=== PATIENT | male | born 1995 | race Caucasian/White ===

== ENCOUNTER 2019-04-04 11:23 | Emergency (ER) | payer OTHER ==
[2019-04-04] MEDS ORDERED: Diphtheria,Pertussis(Acell),Tetanus Vaccine 0.5 ML Syringe IM ONE (11:39)
[2019-04-04] MEDS: Lidocaine 1% 10 ML MDV INJECT ONE ×2 (11:39→11:50)
[2019-04-04] MEDS ORDERED: HYDROmorphone 1 MG/ML Syringe IM ONE (11:39)
[2019-04-04] MEDS ORDERED: Sodium Chloride 0.9% 10 ML Syringe FLUSH PRN (11:52)
--- NOTE | 2019-04-04 11:52 | EDM.PDOC ---
ED HPI GENERAL MEDICAL PROBLEM - General Chief Complaint: Lower Extremity Injury/Pain Stated Complaint: NAIL IN L FOOT Time Seen by Provider: 04/04/19 11:34 Source of Information: Reports: Patient, RN Notes Reviewed History Limitations: Reports: No Limitations - History of Present Illness INITIAL COMMENTS - FREE TEXT/NARRATIVE: Patient is a 23-year-old male who presents to the ED for the evaluation of a nail stuck in his left big toe. 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 He states he was moving the air gun at the time, and it went off and ended up watching a nail in his left great toe. He states the nail is roughly 3-1/4 inches long. Patient states that he is in quite a bit of pain, and is having some numbness and tingling to the great toe and the second toe on his left foot. He is unsure of the actual positioning of the nail, but thinks it is straight through. The nail entered his toe in an anterior/posterior fashion. He is unsure of his last tetanus booster. He would rate his pain at a 6 out of 10 today. He is not sure if he is able to wiggle his toes, as his tennis shoe is still stuck on his foot. Left Toe-Hailux Pain Score (Numeric/FACES): 6 - Related Data Allergies Allergy/AdvReac Type Severity Reaction Status Date / Time No Known Allergies Allergy Verified 04/04/19 11:34 Home Meds: Home Meds Doxycycline [Vibramycin] 100 mg PO BID #20 tab 04/04/19 [Rx] Review of Systems - Review of Systems Review Of Systems: See Below Constitutional: Reports: No Symptoms Eyes: Reports: No Symptoms Ears: Reports: No Symptoms Nose: Reports: No Symptoms Mouth/Throat: Reports: No Symptoms Respiratory: Reports: No Symptoms Cardiovascular: Reports: No Symptoms GI/Abdominal: Reports: No Symptoms Genitourinary: Reports: No Symptoms Musculoskeletal: Reports: Foot Pain (Left great toe pain) Neurological: Reports: Numbness (Left great toe and 2nd toe), Tingling (Left great toe and 2nd toe) Psychiatric: Reports: No Symptoms ED EXAM, GENERAL - Physical Exam Exam: See Below Exam Limited By: No Limitations General Appearance: Alert, WD/WN, No Apparent Distress Head: Atraumatic, Normocephalic Neck: Normal Inspection Respiratory/Chest: No Respiratory Distress, Lungs Clear, Normal Breath Sounds, No Accessory Muscle Use, Chest Non-Tender Cardiovascular: Normal Peripheral Pulses, Regular Rate, Rhythm, No Murmur Peripheral Pulses: 3+: Dorsalis Pedis (L), Dorsalis Pedis (R) Extremities: Other (Tennis shoe in place to left foot, there is a nail head sticking out of L great toe in an anterior/posterior fashion. ) Neurological: Alert, Oriented, Normal Cognition, No Motor/Sensory Deficits Psychiatric: Normal Affect, Normal Mood Skin Exam: Warm, Dry, Normal Color, No Rash, Wound/Incision (nail in left great toe) ED TRAUMA EXTREMITY PROCEDURES - Foreign Body Removal Indication:: 3.25 in nail stuck in Left great toe Consent Obtained: Patient Performing Doctor:: Alex Velásquez (Regine Dumont PA-C assisted) Anesthesia Type: Moderate Sedation (concious sedation with 9mg etomidate administered by Dr. Velásquez) Complications:: No Course - Vital Signs Last Recorded V/S: Last Vital Signs Temp 98.2 F 04/04/19 11:34 Pulse 71 04/04/19 11:34 Resp 20 04/04/19 11:34 BP 111/77 04/04/19 11:34 Pulse Ox 99 04/04/19 11:34 - Orders/Labs/Meds Orders: Active Orders 24 hr Category Date Time Status Communication Order [RC] ASDIRECTED Care 04/04/19 13:53 Ordered Peripheral IV Care [RC] . DIRECTED Care 04/04/19 11:52 Ordered Vaccines to be Administered [RC] PER UNIT ROUTINE Care 04/04/19 11:39 Ordered Sodium Chloride 0.9% [Saline Flush] Med 04/04/19 11:52 Ordered 10 ml FLUSH ASDIRECTED PRN Peripheral IV Insertion Adult [OM.PC] Stat Oth 04/04/19 11:52 Ordered Medication Orders Sodium Chloride (Saline Flush) 10 ml FLUSH ASDIRECTED PRN PRN Reason: Keep Vein Open Last Admin: 04/04/19 12:35 Dose: 10 ml Meds: Medications Generic Name Dose Route Start Last Admin Trade Name Freq PRN Reason Stop Dose Admin Sodium Chloride 10 ml 04/04/19 11:52 04/04/19 12:35 Saline Flush FLUSH 10 ml ASDIRECTED PRN Administration Keep Vein Open Discontinued Medications Generic Name Dose Route Start Last Admin Trade Name Margie PRN Reason Stop Dose Admin Diphtheria/Tetanus/Acell Pertussis 0.5 ml 04/04/19 11:39 04/04/19 11:50 Adacel IM 04/04/19 11:40 0.5 ml .ONCE ONE Administration Etomidate 9 mg 04/04/19 12:41 04/04/19 12:50 Amidate IVPUSH 04/04/19 12:42 9 mg ONETIME ONE Administration Hydromorphone HCl 1 mg 04/04/19 11:39 04/04/19 11:50 Dilaudid IM 04/04/19 11:40 1 mg ONETIME ONE Administration Cefazolin Sodium/Dextrose 1 gm 50 mls @ 100 mls/hr 04/04/19 13:02 04/04/19 13 :11 / Premix IV 04/04/19 13:31 100 mls/hr ONETIME ONE Administration Lidocaine HCl 10 ml 04/04/19 11:39 04/04/19 11:50 Xylocaine 1% INJECT 04/04/19 11:40 10 ml ONETIME ONE Administration - Radiology Interpretation Free Text/Narrative:: Official radiology read demonstrates a metallic nail projected within the anterior aspect of the soft tissues of the foot involving the first toe and extending between the first and second toe. No acute bony abnormality was appreciated on this foot study. - Re-Assessments/Exams Free Text/Narrative Re-Assessment/Exam: 04/04/19 11:55 Patient presents to the ED for evaluation of a nail lodge in his left great toe. At this time the she was still on the foot, we will have to try to get him more comfortable and attempted to remove tissue from the foot so he can see what were dealing with. I did order an x-ray to be obtained to see where the nail is, regarding if it stuck in a bone or not. I did discuss the case with Dr. Velásquez, and he suggested possible use of etomidate while trying to extract the nail to provide adequate analgesia and sedation. He will help assist with the removal. I did order an IV to be placed. 04/04/19 12:37 We were able to cut away some of the top of the shoe, this exposed how the nail was embedded into the left foot. It appears that entered the tip of the great toe and entered on the lateral portion of the great toe, and then into the web spacing between the great and second toe. X-ray demonstrates that the nail entered the tip of the great toe, and missed the bones completely. 04/04/19 12:59 After informed consent was obtained, At 12:55 PM 9 mg of etomidate was given via IV by Dr. Velásquez. Patient achieved sedation at this time, the nail was removed successfully from the left great toe, with no, medications. The wound is bleeding a little bit after the nail removal. Dr. Velásquez recommends 1 g Ancef IV, and a course of doxycycline outpatient. The nail did came out intact. 04/04/19 13:46 Patient is up in the room, he did receive his 1g of Ancef, he is talking appropriately and answering questions appropriately. He denies any increase of pain in his left great toe. His foot was reexamined, and he does have intact sensation, and can wiggle all toes appropriately after removal of the nail. This area will be cleansed, and bandaged appropriately, he'll be discharged home with a course of doxycycline. Departure - Departure Time of Disposition: 13:47 Disposition: Home, Self-Care 01 Condition: Fair Clinical Impression: Foreign body in left foot Qualifiers: Encounter type: initial encounter Qualified Code(s): S90.852A - Superficial foreign body, left foot, initial encounter - Discharge Information *PRESCRIPTION DRUG MONITORING PROGRAM REVIEWED*: No *COPY OF PRESCRIPTION DRUG MONITORING REPORT IN PATIENT MARIAH: No Prescriptions: Doxycycline [Vibramycin] 100 mg PO BID #20 tab Instructions: Hand or Foot Foreign Body, Adult Referrals: PCP,None [Primary Care Provider] - Forms: ED Department Discharge Additional Instructions: You were evaluated in the ER today for the nail stuck in your left foot. You were given 1 dose of IV antibiotics, some pain medication, updated on her tetanus, during this ER visit. This nail was removed successfully, and no complications were noted during or after the removal. You will need to continue a course of outpatient antibiotics, please take the doxycycline 2 times daily until gone, this was electronically prescribed to the [place] pharmacy located in the [facility]. Recommend that you keep the area as clean and dry as possible, you may wash with warm soapy water. Keep an eye out for signs of infection like redness, swelling, increased pain, you should seek re-evaluation if this should occur. You may take 600 mg ibuprofen or 500 mg Tylenol every 6 hours as needed for further pain relief. Please do not exceed 4000 mg of Tylenol or 3200 mg of ibuprofen in a 24-hour time span. Please return to the ED if your symptoms should change or worsen. - My Orders Last 24 Hours: My Active Orders 04/04/19 11:39 Vaccines to be Administered [RC] PER UNIT ROUTINE 04/04/19 11:52 Peripheral IV Care [RC] . DIRECTED Sodium Chloride 0.9% [Saline Flush] 10 ml FLUSH ASDIRECTED PRN Peripheral IV Insertion Adult [OM.PC] Stat 04/04/19 13:53 Communication Order [RC] ASDIRECTED - Assessment/Plan Last 24 Hours: My Active Orders 04/04/19 11:39 Vaccines to be Administered [RC] PER UNIT ROUTINE 04/04/19 11:52 Peripheral IV Care [RC] . DIRECTED Sodium Chloride 0.9% [Saline Flush] 10 ml FLUSH ASDIRECTED PRN Peripheral IV Insertion Adult [OM.PC] Stat 04/04/19 13:53 Communication Order [RC] ASDIRECTED
[2019-04-04] MEDS ORDERED: Etomidate 2 MG/ML 20 ML SDV IVPUSH ONE (12:41)
[2019-04-04] MEDS ORDERED: ceFAZolin 1 GM in Premix Bag 1 BAG IV ONE (13:02)
--- NOTE | 2019-04-04 13:43 | CR ---
Left foot: Two views of the left foot were obtained. Comparison: No previous foot study. Metallic nail is projected within the anterior aspects of the soft tissues of the foot involving the 1st toe and extending between the 1st and 2nd toes. Artifact is noted from overlying shoe. No definite acute fracture is seen. Mild deformity of the shaft of the distal 2nd metatarsal is noted most likely due to old healed fracture. Impression: 1. Metallic nail as described above. 2. No acute bony abnormality is appreciated. Diagnostic code #3
== END 2019-04-04 14:25 | disposition home or self-care (01) ==
LOC: JD.ED 11:23
DX: S90.452A Superficial foreign body, left great toe, initial encounter (principal); Z23 Encounter for immunization; W45.0XXA Nail entering through skin, initial encounter; Y93.89 Activity, other specified; Y92.69 Other specified industrial and construction area as the place of occurrence of the external cause; Y99.0 Civilian activity done for income or pay
CPT/HCPCS: 28192; 73620; 90471; 90700; 96365; 96372; 96375; 99152; 99283; J0690; J1170; J3490; J2001

== ENCOUNTER 2021-05-03 16:22 | Emergency (ER) | payer OTHER ==
[2021-05-03] MEDS ORDERED: HYDROmorphone 1 MG/ML Syringe IVPUSH ONE (16:33)
--- NOTE | 2021-05-03 16:40 | EDM.PDOC ---
ED HPI GENERAL MEDICAL PROBLEM - General Chief Complaint: Upper Extremity Injury/Pain Stated Complaint: PILAR AMB Time Seen by Provider: 05/03/21 16:24 Source of Information: Reports: Patient, RN Notes Reviewed History Limitations: Reports: No Limitations - History of Present Illness INITIAL COMMENTS - FREE TEXT/NARRATIVE: Patient is a 25-year-old male who is brought into the ER via [facility] ambulance service for the evaluation of the left wrist injury. 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 Thinks that he may have fell onto an outstretched left wrist. There is a slight deformity noted to the left wrist, he is still able to move his fingers in all range of motion with little difficulty. States he cannot move his wrist at all due to the pain. Patient is right-hand dominant. Patient denies any other sick-like symptoms, fever/chills, cough/shortness of breath, nausea/vomiting/diarrhea. He was not given anything for pain management by the ambulance service, but they did start an IV. Right Wrist Pain Score (Numeric/FACES): 8 - Related Data Allergies Allergy/AdvReac Type Severity Reaction Status Date / Time No Known Allergies Allergy Verified 05/03/21 16:35 Home Meds: Home Meds . [No Known Home Meds] 05/03/21 [History] Past Medical History - Past Health History Medical/Surgical History: Denies Medical/Surgical History Social & Family History - Caffeine Use Caffeine Use: Reports: Coffee, Soda, Tea Review of Systems - Review of Systems Review Of Systems: Comprehensive ROS is negative, except as noted in HPI. ED EXAM, GENERAL - Physical Exam Exam: See Below Exam Limited By: No Limitations General Appearance: Alert, WD/WN, No Apparent Distress Respiratory/Chest: No Respiratory Distress, Lungs Clear, Normal Breath Sounds, No Accessory Muscle Use, Chest Non-Tender Cardiovascular: Normal Peripheral Pulses, Regular Rate, Rhythm, No Edema GI/Abdominal: Normal Bowel Sounds, Soft, Non-Tender, No Distention, No Mass Extremities: Normal Capillary Refill, Limited Range of Motion (of left wrist d/t pain) Neurological: Alert, Oriented, Normal Cognition, No Motor/Sensory Deficits Psychiatric: Normal Affect, Normal Mood Skin Exam: Warm, Dry, Intact, Normal Color, No Rash ED TRAUMA EXTREMITY PROCEDURES - Splinting Left Upper Extremity Splint Site: Left wrist Pre-Procedure NV Status: Normal Post-Procedure NV Status: Normal Splint Material: Fiberglass Splint Design: Volar Applied & Form Fitted By: Provider, Nurse Provider Post-Splint Application NV Check: NV Status Normal, Good Position Complications: No Course - Vital Signs Last Recorded V/S: Last Vital Signs Temp 98.6 F 05/03/21 16:34 Pulse 81 05/03/21 16:34 Resp 20 05/03/21 16:34 BP 137/82 05/03/21 16:34 Pulse Ox 100 05/03/21 16:34 - Orders/Labs/Meds Orders: Active Orders 24 hr Category Date Time Status Wrist Comp Min 3V Lt [CR] Stat Exams 05/03/21 16:32 Taken Labs: Laboratory Tests 05/03/21 Range/Units 17:23 Influenza Type A RNA Negative (NEGATIVE) Influenza Type B RNA Negative (NEGATIVE) SARS-CoV-2 RNA (SEAN) Negative (NEGATIVE) Meds: Medications Discontinued Medications Generic Name Dose Route Start Last Admin Trade Name Margie PRN Reason Stop Dose Admin Fentanyl 100 mcg 05/03/21 17:29 05/03/21 17:45 Fentanyl 100 Mcg/2 Ml Sdv IVPUSH 05/03/21 17:30 100 mcg ONETIME ONE Administration Hydromorphone HCl 1 mg 05/03/21 16:33 05/03/21 17:05 Hydromorphone 1 Mg/Ml Syringe IVPUSH 05/03/21 16:34 1 mg ONETIME ONE Administration Morphine Sulfate 2 mg 05/03/21 18:48 Morphine 2 Mg/Ml Syringe IVPUSH 05/03/21 18:49 ONETIME ONE Ondansetron HCl 4 mg 05/03/21 18:48 Ondansetron 4 Mg/2 Ml Sdv IVPUSH 05/03/21 18:49 ONETIME ONE - Re-Assessments/Exams Free Text/Narrative Re-Assessment/Exam: 05/03/21 16:37 Patient will be given 1 mg Dilaudid via IV for pain management and will get some x-rays of his left wrist. 05/03/21 17:07 X-rays have been taken, there are no obvious fractures noted of the wrist bones however it does appear as if he may have dislocated his carpal bones from his radius and ulna, this was appreciated by both myself and Dr. Love. We will go ahead and get a Covid screen for possible transfer to [place]. Currently on the phone with [facility] in [place]; Dr. Barney Up is on-call and has also reviewed the films and he recommends that the patient be transferred to the ER in [place] for further management. I will go ahead and get the patient splinted up and get him sent down the road for definitive management. 05/03/21 18:50 Nursing staff did make me aware that the patient states that his wrist is still very painful, so we will go ahead and try 2 mg morphine for ongoing pain management. Patient has received total 1 mg Dilaudid, 100 mcg fentanyl, and now the resulting 2 mg morphine. I did also order 4 mg Zofran to go along with the 2 mg morphine. Departure - Departure Time of Disposition: 17:17 Disposition: DC/Tfer to Acute Hospital 02 Condition: Good Clinical Impression: Dislocation of lunate bone of left wrist - Discharge Information *PRESCRIPTION DRUG MONITORING PROGRAM REVIEWED*: No *COPY OF PRESCRIPTION DRUG MONITORING REPORT IN PATIENT MARIAH: No Forms: ED Department Discharge Additional Instructions: You were evaluated in the ER today for your left wrist injury. It does appear that you have a lunate dislocation of your left carpal bones. This may likely require surgical management. Please do not eat or drink anything from this point on. You are being transferred to the [facility] emergency room in [facility] for ongoing management. [facility] Please go directly there for ongoing management. You will need to be evaluated by their ER provider, and/or orthopedics for ongoing management. Dr. Briceno (ER) and Dr. Up/Angelina are on for orthopedics and they should be able to assist you in further care. Sepsis Event Note (ED) - Focused Exam Vital Signs: Vital Signs Temp Pulse Resp BP Pulse Ox 05/03/21 16:34 98.6 F 81 20 137/82 100 - My Orders Last 24 Hours: My Active Orders 05/03/21 16:32 Wrist Comp Min 3V Lt [CR] Stat - Assessment/Plan Last 24 Hours: My Active Orders 05/03/21 16:32 Wrist Comp Min 3V Lt [CR] Stat
[2021-05-03] MEDS ORDERED: fentaNYL 100 MCG/2 ML SDV IVPUSH ONE (17:29)
[2021-05-03 18:19] LABS: CORONAVIRUS COVID-19 NAA NEGATIVE (NEGATIVE)
[2021-05-03] MEDS ORDERED: Ondansetron 4 MG/2 ML SDV IVPUSH ONE (18:48)
[2021-05-03] MEDS ORDERED: Morphine 2 MG/ML SYRINGE IVPUSH ONE (18:48)
--- NOTE | 2021-05-04 12:24 | CR ---
Left wrist: 4 views of the left wrist were obtained. Comparison: No previous wrist study is available. Dislocation is seen with the lunate bone being tilted anteriorly. Diffuse soft tissue swelling is noted. Small calcification is seen posteriorly most likely due to previous injury. Soft tissue swelling is noted. Impression: 1. Wrist dislocation with lunate bone being tilted anteriorly. Consider wrist CT to further evaluate. 2. Small calcification posteriorly likely due to previous injury. 3. Soft tissue swelling. Diagnostic code #3
== END 2021-05-03 19:53 ==
LOC: JD.ED 16:22
DX: S63.005A Unspecified dislocation of left wrist and hand, initial encounter (principal); Z20.822 Contact with and (suspected) exposure to COVID-19; W11.XXXA Fall on and from ladder, initial encounter
CPT/HCPCS: 0240U; 29125; 73110; 96374; 96375; 99285; J1170; J2270; J2405; J3010